=== PATIENT | male | born 1990 | race Caucasian/White ===

== ENCOUNTER 2024-04-12 13:11 | Emergency (ER) | payer MEDICAID ==
[~2024-04-12] VITALS: Ht 180.3 cm; Wt 63.6 kg
[2024-04-12 13:13] VITALS: BP 152/94; PULSE 86; RESP 18; TEMP 97.6; O2SAT 99
[2024-04-12] MEDS: mineral oil/pet hy-phy 85gm ointment TP SCH (13:45)
[2024-04-12] MEDS: bacitracin 15gm ointment TP ONE (14:01)
[2024-04-12] MEDS ORDERED: BACI1PAC7 TOP (14:30)
== END 2024-04-12 15:13 | disposition home or self-care (01) ==
LOC: ER 13:12
DX: T69.8XXA Other specified effects of reduced temperature, initial encounter (principal); T69.021A Immersion foot, right foot, initial encounter; Z59.00 Homelessness unspecified
CPT/HCPCS: 99282